=== PATIENT | male | born 1960 | race Caucasian/White ===

== ENCOUNTER 2023-08-25 13:29 | Outpatient (CLI) | payer OTHER | END 2023-08-25 13:30 | disposition home or self-care (01) | LOC: BICRAD 13:29 | PROVIDERS: ATTEND Preventive Medicine Occupational Medicine | DX: M25.551 Pain in right hip (principal); M94.261 Chondromalacia, right knee; M47.26 Other spondylosis with radiculopathy, lumbar region; M43.16 Spondylolisthesis, lumbar region; M17.11 Unilateral primary osteoarthritis, right knee | CPT/HCPCS: 72100 ==